=== PATIENT | female | born 1995 | race Caucasian/White ===

== ENCOUNTER 2016-11-25 20:06 | Emergency (ER) | payer SELFPAY ==
[2016-11-25 20:18] VITALS: TEMP 99
[2016-11-25] MEDS ORDERED: CHLORHEXIDINE GLUCONATE 4 % 15 ML UD TOP ONE (20:20)
--- NOTE | 2016-11-25 20:40 | ED.PDOC ---
History of Present Illness - General Chief Complaint: Lower Extremity Injury Stated Complaint: rt great toe pain Time Seen by Provider: 11/25/16 20:26 Source: patient Exam Limitations: no limitations - History of Present Illness Initial Comments: Mouna Abbasi 21 years old female stated that her right ingrown toenail gradually getting worse with pain /swelling.Tried to trim nail but not better. Occurred: other - one month Pain - Lower Extremity: moderate: Right Foot Method of Injury: unknown Improving Factors: rest Worsening Factors: movement Associated Symptoms: trhobbing pain toe right Allergies/Adverse Reactions: Allergies NO KNOWN ALLERGY Allergy (Verified 11/25/16 20:17) Home Medications: Ambulatory Orders Cephalexin 1,000 mg PO BID #20 cap 11/25/16 Review of Systems - Review of Systems Constitutional: States: no symptoms reported EENTM: States: no symptoms reported Respiratory: States: no symptoms reported Cardiology: States: no symptoms reported Gastrointestinal/Abdominal: States: no symptoms reported Genitourinary: States: no symptoms reported Musculoskeletal: States: no symptoms reported Skin: States: see HPI Past Medical History (General) - Patient Medical History Hx Asthma: No Surgical History: cholecystectomy - Vaccination History Hx Tetanus, Diphtheria Vaccination: No - Female History Patient is a Female of Child Bearing Age (10 -59 yrs old): Yes Hx Last Menstrual Period: 10/08/16 Patient : No Family Medical History - Family History Mother Family History: Unknown Physical Exam - Physical Exam General Appearance: Alert, No apparent distress Eyes, Ears, Nose, Throat: PERRL/EOMI, normal ENT inspection Neck: non-tender Cardiovascular/Respiratory: regular rate, rhythm, no M/R/G Gastrointestinal/Abdominal: non-tender Back: normal inspection Thigh/Hip: no evidence of injury Leg: no evidence of injury Knee: no evidence of injury Ankle: no evidence of injury Foot: soft tissue tenderness - right great toe, other - pain swelling right great toe Progress - Results/Orders Results/Orders: Procedure; Right foot soak in soapy water with hibiclens then nerve block done with lidocaine 1% followed by partial matrixellectomy of infected ingrown right great toenail.Wrapped with sterile dressing. Departure - Departure Clinical Impression: Ingrowing toenail with infection Time of Disposition: 21:25 Disposition: Discharge to Home or Self Care Condition: Good Departure Forms: ED Discharge - Pt. Copy, Patient Portal Self Enrollment Instructions: DI for Ingrown Toenail Removal, DI for Infected Ingrown Toenail Prescriptions: Cephalexin 1,000 mg PO BID #20 cap Home Medications: Ambulatory Orders Cephalexin 1,000 mg PO BID #20 cap 11/25/16 Additional Instructions: May take Aleve(otc) one tablet 3x a day for pain as needed apply neosporin daily for seven days after removal of dressing 11/27/2016
[2016-11-25] MEDS ORDERED: LIDOCAINE 1% 10 ML VIAL INJ ONE (20:52)
[2016-11-25] MEDS: CEPHALEXIN MONOHYDRATE 500 MG CAP PO ONE (21:27)
[2016-11-25] MEDS: HYDROcodone 7.5MG/APAP 325MG 1 EA TAB PO ONE (21:28)
[2016-11-25] MEDS: HYDROCOD/APAP 5/325 (ER DISP) #3 TAB PO ONE (21:28)
[2016-11-25 21:39] VITALS: O2SAT 97
[2016-11-25 21:40] VITALS: BP 120/82
== END 2016-11-25 21:40 | disposition home or self-care (01) ==
LOC: EDBD 20:06 → ER 20:06
DX: L60.0 Ingrowing nail (principal); L03.031 Cellulitis of right toe

== ENCOUNTER 2017-03-09 10:09 | Emergency (ER) | payer SELFPAY ==
--- NOTE | 2017-03-09 10:25 | ED.PDOC ---
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 - History of Present Illness Timing/Duration: resolved prior to arrival Severity: mild Worsening Factors: nothing Associated Symptoms: denies symptoms Allergies/Adverse Reactions: Allergies NO KNOWN ALLERGY Allergy (Verified 03/09/17 10:12) Home Medications: Ambulatory Orders NK [NK] 03/09/17 Review of Systems - Review of Systems All other Systems: Reviewed and Negative, No Change from Baseline Past Medical History (General) - Patient Medical History Hx Stroke: No Hx Asthma: No Hx Congestive Heart Failure: No Hx Diabetes: No Surgical History: cholecystectomy, other - Vaccination History Hx Tetanus, Diphtheria Vaccination: No Hx Influenza Vaccination: Yes - 2017 Hx Pneumococcal Vaccination: No - Social History Hx Tobacco Use: No - Female History Patient is a Female of Child Bearing Age (10 -59 yrs old): Yes Hx Last Menstrual Period: 10/08/16 Patient : No Family Medical History - Family History Mother Family History: No Known Living Status: Still Living Physical Exam - Physical Exam General Appearance: Alert, Comfortable, No apparent distress Eye Exam: bilateral normal Ears, Nose, Throat: hearing grossly normal, normal ENT inspection, normal pharynx, abnormal TM (R) Neck: supple Respiratory: chest non-tender, lungs clear, normal breath sounds Cardiovascular/Chest: regular rate, rhythm, no murmur Peripheral Pulses: radial,right: 2+, radial,left: 2+ Gastrointestinal/Abdominal: normal bowel sounds, non tender, soft, no organomegaly Back Exam: no CVA tenderness, no vertebral tenderness Extremity: no pedal edema, no calf tenderness Neurologic: alert, normal mood/affect, oriented x 3 Skin Exam: normal color, warm/dry Lymphatic: no adenopathy Progress - Progress Progress: 03/09/17 10:27 Last Vital Signs Temp 97.9 F 03/09/17 10:13 Pulse 94 H 03/09/17 10:13 Resp 18 03/09/17 10:13 BP 116/85 03/09/17 10:13 Pulse Ox 98 03/09/17 10:13 Departure - Departure Clinical Impression: Hx of nausea and vomiting Time of Disposition: 10:28 Disposition: Discharge to Home or Self Care Departure Forms: ED Discharge - Pt. Copy, ED Discharge - Work Release, Patient Portal Self Enrollment Home Medications: Ambulatory Orders NK [NK] 03/09/17 Additional Instructions: MAY GO BACK TO WORK TODAY 2016;REGULAR HANDWASHING PER WORKPLACE PROTOCOL
[2017-03-09 11:10] VITALS: BP 116/85; TEMP 97.9; O2SAT 98
== END 2017-03-09 10:35 | disposition home or self-care (01) ==
LOC: ER 10:09
DX: Z87.19 Personal history of other diseases of the digestive system (principal)

== ENCOUNTER 2017-06-07 09:58 | Emergency (ER) | payer SELFPAY ==
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
--- NOTE | 2017-06-07 11:48 | RAD ---
Procedure: Noncontrast head CT Exam Date: 06/07/2017 10:58 AM SUBSTATION OPERATOR HELPER GENERATION Ordering Provider: Johnny Dodson Clinical Indication: pain Comparison: None Technique: CT images of the head were obtained without contrast administration. Coronal and sagittal reformats were obtained. This exam was performed according to our departmental dose-optimization program which includes automated exposure control, adjustment of the mA and/or kV according to patient size and/or use of iterative reconstruction technique. Findings: There is no acute cortical infarction, hemorrhage, midline shift, mass effect, or hydrocephalus. The calvaria and skull base are unremarkable. Scattered patchy opacification of the ethmoid air cells. Circumferential wall thickening of the sphenoid sinuses.. Impression: No acute cortical infarction or hemorrhage. Paranasal sinus disease. Procedure: PA and lateral views of the chest Exam Date: 06/07/2017 10:58 AM SUBSTATION OPERATOR HELPER GENERATION Ordering Provider: Johnny Dodson Clinical Indication: pain Comparison: None Findings: The lungs are clear and well-aerated. No pleural effusion or pneumothorax. Cardiac silhouette is normal in size. Impression: No acute pulmonary process. Procedure: XR CERVICAL SPINE 2 - 3 VIEWS, Exam Date: 06/07/2017 10:58 AM SUBSTATION OPERATOR HELPER GENERATION Ordering Provider: Johnny Dodson Clinical Indication: pain Comparison: None Findings: No fracture, focal osseous destruction, or malalignment. Disk space heights are preserved. Soft tissues are unremarkable. IMPRESSION: No acute osseous abnormality. Electronically signed by: Tyra Gomez MD 06/07/2017 11:47 AM SUBSTATION OPERATOR HELPER GENERATION
--- NOTE | 2017-06-07 11:48 | RAD ---
Procedure: Noncontrast head CT Exam Date: 06/07/2017 10:58 AM CHEMICAL PROCESSING TECHNICIAN Ordering Provider: Johnny Dodson Clinical Indication: pain Comparison: None Technique: CT images of the head were obtained without contrast administration. Coronal and sagittal reformats were obtained. This exam was performed according to our departmental dose-optimization program which includes automated exposure control, adjustment of the mA and/or kV according to patient size and/or use of iterative reconstruction technique. Findings: There is no acute cortical infarction, hemorrhage, midline shift, mass effect, or hydrocephalus. The calvaria and skull base are unremarkable. Scattered patchy opacification of the ethmoid air cells. Circumferential wall thickening of the sphenoid sinuses.. Impression: No acute cortical infarction or hemorrhage. Paranasal sinus disease. Procedure: PA and lateral views of the chest Exam Date: 06/07/2017 10:58 AM CHEMICAL PROCESSING TECHNICIAN Ordering Provider: Johnny Dodson Clinical Indication: pain Comparison: None Findings: The lungs are clear and well-aerated. No pleural effusion or pneumothorax. Cardiac silhouette is normal in size. Impression: No acute pulmonary process. Procedure: XR CERVICAL SPINE 2 - 3 VIEWS, Exam Date: 06/07/2017 10:58 AM CHEMICAL PROCESSING TECHNICIAN Ordering Provider: Johnny Dodson Clinical Indication: pain Comparison: None Findings: No fracture, focal osseous destruction, or malalignment. Disk space heights are preserved. Soft tissues are unremarkable. IMPRESSION: No acute osseous abnormality. Electronically signed by: Tyra Gomez MD 06/07/2017 11:47 AM CHEMICAL PROCESSING TECHNICIAN
[2017-06-07] MEDS ORDERED: ORPHENADRINE CITRATE 30 MG/ML AMP IM ONE (12:20)
[2017-06-07] MEDS ORDERED: KETOROLAC TROMETHAMINE INJ 30 MG/ML VIAL IM ONE (12:20)
[2017-06-07 12:41] VITALS: BP 114/79
[2017-06-07 13:00] VITALS: TEMP 98; O2SAT 99
== END 2017-06-07 12:50 | disposition home or self-care (01) ==
LOC: ER 09:58
DX: S13.4XXA Sprain of ligaments of cervical spine, initial encounter (principal); R07.89 Other chest pain; R51 Headache; V47.5XXA Car driver injured in collision with fixed or stationary object in traffic accident, initial encounter; Y92.410 Unspecified street and highway as the place of occurrence of the external cause
CPT/HCPCS: 70450; 71046; 72040; 81025; J1885; J2360